=== PATIENT | female | born 1960 | race Caucasian/White ===

== ENCOUNTER 2019-03-26 17:11 | Emergency (ER) | payer MEDICARE, OTHER ==
[~2019-03-26] VITALS: Ht 167.6 cm; Wt 66.7 kg
--- NOTE | 2019-03-26 17:17 | NUR ---
nazanin, from snf, c/o weakness, failure to thrive x 2 days, pt to bed 12, -sob, nad noted, vss, pending md muse
[2019-03-26] MEDS ORDERED: RIVA1.5C7 PO (17:35)
[2019-03-26] MEDS ORDERED: ACET-868 PO (17:35)
[2019-03-26] MEDS ORDERED: AMLO5TAB4 PO (17:35)
[2019-03-26] MEDS ORDERED: ESCI10TA PO (17:35)
[2019-03-26] MEDS ORDERED: DOCU-141 PO (17:35)
[2019-03-26] MEDS ORDERED: TRAZ-182 PO (17:35)
[2019-03-26] MEDS ORDERED: BISA10SU11 RC (17:35)
[2019-03-26] MEDS ORDERED: DIVA125C2 PO (17:35)
[2019-03-26] MEDS ORDERED: QUET25TA PO (17:35)
[2019-03-26] MEDS ORDERED: DONE5TAB34 PO (17:35)
[2019-03-26] MEDS ORDERED: NA P133E RC (17:35)
[2019-03-26] MEDS ORDERED: LISI1TAB29 PO (17:35)
[2019-03-26] MEDS ORDERED: HALO1TAB5 PO (17:35)
[2019-03-26] MEDS ORDERED: MAGN400O6 PO (17:35)
[2019-03-26 17:46] LABS: BASOPHILS % (AUTO) 0.6 % (0.0-2.0); EOSINOPHILS % (AUTO) 1.6 % (0.0-6.0); HEMATOCRIT 34 % (33-45); HEMOGLOBIN 11.2 g/dL (11.5-14.8); LYMPHOCYTES # (AUTO) 2.3 /CMM (0.8-4.8); LYMPHOCYTES % (AUTO) 40.4 % (20.0-44.0); MEAN CORPUSCULAR HGB CONC 34 g/dl (31.0-36.0); MEAN CORPUSCULAR VOLUME 92 fL (82-100); MONOCYTES # (AUTO) 0.5 /CMM (0.1-1.30); MONOCYTES % (AUTO) 8.7 % (2.0-12.0); NEUTROPHILS # (AUTO) 2.8 /CMM (1.8-8.9); NEUTROPHILS % (AUTO) 48.7 % (43.0-81.0); PLATELET COUNT (AUTO) 277 /CMM (150-450); RED BLOOD CELL COUNT(AUTO) 3.64 MIL/uL (4.0-5.2); WHITE BLOOD COUNT (AUTO) 5.7 K/uL (4.3-11.0)
[2019-03-26 17:54] LABS: CALCIUM, SERUM 9.2 mg/dL (8.5-10.1); CREATININE 0.7 mg/dL (0.6-1.3); POTASSIUM 3.3 mmol/L (3.5-5.1)
--- NOTE | 2019-03-26 18:24 | NUR ---
[facility], AWAITING CALL BACK FROM
[2019-03-26] MEDS ORDERED: POTASSIUM CHLORIDE 20 MEQ TAB.PRT.SR PO ONE ×2 (18:30→18:32)
[2019-03-26 18:53] LABS: APPEARANCE,URINE Clear (CLEAR); BILIRUBIN,URINE Negative (NEGATIVE); BLOOD, URINE Moderate Ery/uL (NEGATIVE); COLOR,URINE Yellow (YELLOW); KETONES,URINE Negative (NEGATIVE); LEUKOCYTE ESTERASE ,URINE Negative (NEGATIVE); NITRITE, URINE Negative (NEGATIVE); PH,URINE 5.5 (5.0-8.0); PROTEIN,URINE Negative (NEGATIVE); UGLUCOSE Negative (NEGATIVE); UROBILINOGEN,URINE 0.2 EU/dL (0.2)
[2019-03-26 19:04] LABS: BACTERIA,URINE Few /HPF (None Seen); SQUAMOUS EPITHELIAL CELL,UR Few /HPF (None Seen)
[2019-03-26 19:05] LABS: WBC,URINE 0-2 /HPF (0-3)
[2019-03-26 20:00] VITALS: BP 154/75
--- NOTE | 2019-03-26 20:06 | NUR ---
TRANSFER INFO: PAZ GRIJALVA RN FOR REPORT [phone], ACCEPTED BY DR HENRY. [facility] BLS AMBULNACE ETA 2100
--- NOTE | 2019-03-26 20:37 | NUR ---
report given to comfort le for reji pt will be tranposrted to juan
--- NOTE | 2019-03-26 21:30 | NUR ---
Isabel salas in EDM - 03/26/19 at 2252 by OMAR nazanin, from snf, c/o weakness, failure to thrive x 2 days, pt to bed 12, -sob, nad noted, vss, pending md muse
--- NOTE | 2019-03-26 22:52 | NUR ---
pt left in stable condition via private ambulance, pt vss, nad noted, -sob report given to ambulance staff
== END 2019-03-26 21:30 | disposition short-term general hospital (02) ==
LOC: ER 17:14
DX: R62.7 Adult failure to thrive (principal); E87.6 Hypokalemia; F29 Unspecified psychosis not due to a substance or known physiological condition; F32.9 Major depressive disorder, single episode, unspecified; F20.9 Schizophrenia, unspecified; F03.90 Unspecified dementia, unspecified severity, without behavioral disturbance, psychotic disturbance, mood disturbance, and anxiety; I10 Essential (primary) hypertension; E11.9 Type 2 diabetes mellitus without complications; Z79.899 Other long term (current) drug therapy; Z68.23 Body mass index [BMI] 23.0-23.9, adult
CPT/HCPCS: 36415; 80048-TC; 81000-TC; 84484-TC; 85025-TC

== ENCOUNTER 2020-07-23 12:56 | Inpatient (IN) | payer MEDICARE, OTHER ==
[~2020-07-23] VITALS: Ht 160 cm; Wt 53.1 kg
[~2020-07-23 12:56] MED LIST: ACET-868 PO; AMLO5TAB4 PO; BISA10SU11 RC; DIVA125C2 PO; DOCU-141 PO; DONE5TAB34 PO; ESCI10TA PO; HALO1TAB5 PO; LISI1TAB29 PO; MAGN400O6 PO; NA P133E RC; QUET25TA PO; RIVA1.5C13 PO; TRAZ-182 PO
--- NOTE | 2020-07-23 12:56 | NUR ---
PT BIBPA FROM [place] SENT BY PMD FOR INCREASING AGITATION. PT IS AAOX1, NOT IN RESPIRATORY DISTRESS, V/S STABLE, KEPT RESTED AND COMFORTABLE. WILL CONTINUE TO MONITOR.
--- NOTE | 2020-07-23 13:10 | NUR ---
PT SEEN AND EXAMINED BY .
[2020-07-23] MEDS ORDERED: HALOPERIDOL LACTATE INJ 5 MG/ML VIAL ONE (13:13)
[2020-07-23] MEDS ORDERED: ONDANSETRON HCL/PF 4 MG/2 ML VIAL ONE (13:13)
--- NOTE | 2020-07-23 13:20 | NUR ---
IV LINE ESTABLISHED BLOOD DRAWN AND SENT TO LAB.
[2020-07-23] MEDS ORDERED: HALOPERIDOL LACTATE INJ 5 MG/ML VIAL IM ONE (13:30)
[2020-07-23] MEDS ORDERED: ONDANSETRON HCL/PF 4 MG/2 ML VIAL IVP ONE (13:30)
[2020-07-23] MEDS ORDERED: IV NS 0.9% 1,000 ML BAG IV ONE (13:30)
[2020-07-23 13:40] LABS: BASOPHILS # (AUTO) 0.1 /CMM (0.0-0.2); BASOPHILS % (AUTO) 1.1 % (0.0-2.0); EOSINOPHILS % (AUTO) 1.6 % (0.0-6.0); HEMATOCRIT 39 % (33-45); HEMOGLOBIN 12.9 g/dL (11.5-14.8); LYMPHOCYTES # (AUTO) 2.6 /CMM (0.8-4.8); LYMPHOCYTES % (AUTO) 42.8 % (20.0-44.0); MEAN CORPUSCULAR HGB CONC 34 g/dl (31.0-36.0); MEAN CORPUSCULAR VOLUME 97 fL (82-100); MONOCYTES # (AUTO) 0.5 /CMM (0.1-1.30); MONOCYTES % (AUTO) 8.3 % (2.0-12.0); NEUTROPHILS # (AUTO) 2.8 /CMM (1.8-8.9); NEUTROPHILS % (AUTO) 46.2 % (43.0-81.0); PLATELET COUNT (AUTO) 189 /CMM (150-450); RED BLOOD CELL COUNT(AUTO) 3.97 MIL/uL (4.0-5.2); WHITE BLOOD COUNT (AUTO) 6.1 K/uL (4.3-11.0)
[2020-07-23 13:51] LABS: ALBUMIN 3.8 g/dL (3.4-5.0); BILIRUBIN,DIRECT 0.1 mg/dL (0.0-0.2); BILIRUBIN,TOTAL 0.4 mg/dL (0.2-1.0); CALCIUM, SERUM 9.1 mg/dL (8.5-10.1); CREATININE 0.7 mg/dL (0.6-1.3); POTASSIUM 3.6 mmol/L (3.5-5.1); TOTAL PROTEIN, SERUM 7.8 g/dL (6.4-8.2)
--- NOTE | 2020-07-23 14:10 | NUR ---
CALLED [facility] TO CHECK INSURANCE FOR GER[facility]SY[facility] ADMISSION
[2020-07-23] MEDS ORDERED: AMIN30LI27 PO (14:14)
[2020-07-23] MEDS ORDERED: LATA2.5D15 EACHEYE (14:14)
[2020-07-23] MEDS ORDERED: CLON0.1T PO (14:14)
[2020-07-23] MEDS ORDERED: CRAN425C6 PO (14:14)
--- NOTE | 2020-07-23 14:19 | NUR ---
URINE SPECIMEN COLLECTED AND SENT TO LAB.
[2020-07-23 14:43] LABS: BILIRUBIN,URINE Negative (NEGATIVE); COLOR,URINE LIGHT YELLOW (YELLOW); LEUKOCYTE ESTERASE ,URINE Negative (NEGATIVE); NITRITE, URINE Negative (NEGATIVE); PROTEIN,URINE Negative (NEGATIVE); UGLUCOSE Negative (NEGATIVE); UROBILINOGEN,URINE 0.2 EU/dL (0.2)
[2020-07-23 14:51] LABS: BACTERIA,URINE None seen /HPF (None Seen); SQUAMOUS EPITHELIAL CELL,UR Few /HPF (None Seen); WBC,URINE 0-2 /HPF (0-3)
--- NOTE | 2020-07-23 15:25 | NUR ---
COVID SPECIMEN OBTAINED AND SENT TO LAB.
--- NOTE | 2020-07-23 15:39 | NUR ---
ART PROVINCE ARCHIVIST AT BEDSIDE FOR EVAL.
[2020-07-23] MEDS ORDERED: BISACODYL SUPP (10 MG) 10 MG/SUPP.RECT SUPP.RECT RC PRN (16:00)
[2020-07-23] MEDS ORDERED: MAGNESIUM HYDROXIDE 30 ML UDC PO PRN ×2 (16:00→18:30)
[2020-07-23] MEDS ORDERED: ACETAMINOPHEN 325 MG TABLET PO PRN ×2 (16:00→18:30)
[2020-07-23] MEDS ORDERED: DEXTROSE 50%-WATER 50 ML DISP.SYRIN IV PRN (16:30)
[2020-07-23] MEDS ORDERED: INSULIN REGULAR, HUMAN 100 UNIT/ML 3 ML VIAL SQ PRN (16:30)
--- NOTE | 2020-07-23 16:36 | NUR ---
REPORT GIVEN TO ERMIAS SAGASTUME FOR PERRY.
--- NOTE | 2020-07-23 16:45 | NUR ---
ACADEMIC SERVICES COORDINATOR NOTE: 60 YEAR OLD FEMALE ADMITTED FROM [facility] ON A 5150 FOR GD. PER HOLD, PT HAD INCREASED CONFUSION AND AGITATION. UNABLE TO CARE FOR SELF. PT HAS A HISTORY OF SCHIZOPHRENIA, DEPRESSION, HTN, DM2 AND DYSPHAGIA. PT IS ON A [facility] LYNDSAY DIET WITH NECTAR THICK FLUIDS. 1 LITER IV FLUIDS ADMINISTERED IN ER.UPON FACE TO FACE EVALUATION PT IS MUTE. NOT VERBALLY RESPONSIVE. SOME MINOR INAUDIBLE NOISES. PT UNABLE TO FOLLOW DIRECTIONS. A+OX1. EXTREMITIES ARE CONTRACTED. SKIN CLEAR. UNABLE TO SIGN ADMISSION PAPERWORK. DR. DUFFY AND LENCHO AWARE OF ADMISSION. DAUGHTER IN LAW, NEXT OF KIN, NOTIFIED OF ADMISSION.
[2020-07-23] MEDS: CLONIDINE HCL 0.1 MG TABLET PO SCH (17:00)
[2020-07-23] MEDS ORDERED: DIVALPROEX SODIUM 125 MG CAP.SPRINK PO SCH (17:00)
[2020-07-23] MEDS: BLOOD SUGAR DIAGNOSTIC 1 EACH STRIP IN SCH ×2 (17:28→21:50)
[2020-07-23] MEDS: PROSTAT (PYXIS) 30 ML UDC PO SCH (17:38)
[2020-07-23] MEDS: DONEPEZIL 5 MG TABLET PO SCH (17:38)
[2020-07-23] MEDS ORDERED: Medication Not On Formulary EA (Cranberry Extract (Cranberry) 425 MG) PO SCH (18:00)
[2020-07-23 18:16] VITALS: BP 161/70
[2020-07-23] MEDS ORDERED: LORAZEPAM 0.5 MG TABLET PO PRN (18:30)
[2020-07-23] MEDS ORDERED: BLOOD SUGAR DIAGNOSTIC 1 EACH STRIP IN ONE (18:30)
[2020-07-23] MEDS ORDERED: MAG HYDROX/AL HYDROX/SIMETH 30 ML UDC PO PRN (18:30)
--- NOTE | 2020-07-23 19:30 | NUR ---
RN NOTES PATIENT IN BED, EYES CLOSED. OPENS EYES, UNABLE TO COMMUNICATE VERBALLY. NOT IN ANY APPARENT DISTRESS. BREATHING EVEN AND UNLABORED. WILL MONITOR PATIENT CLOSELY.
[2020-07-23 20:00] VITALS: BP 134/67
[2020-07-23] MEDS: LATANOPROST EYE DROP 0.005% 2.5 ML BOTTLE EACHEYE SCH (22:00)
--- NOTE | 2020-07-23 22:05 | NUR ---
HR 47, LATANOPROST EYE DROPS NOT GIVEN
[2020-07-24] MEDS: BLOOD SUGAR DIAGNOSTIC 1 EACH STRIP IN SCH ×6 (01:06→21:35)
--- NOTE | 2020-07-24 05:15 | NUR ---
BS AT 0445 WAS 61 MG/DL, CHARGE AWARE, RECHECKED IT WAS 69 MG/DL. NOTIFIED STAKES PLAYER HOSPITALIST, ORDERED D10 IN WATER 250 ML BAG TO INFUSE FOR AN HOUR. ORDER READ BACK AND CARRIED OUT. WILL INSERT IV.
[2020-07-24] MEDS ORDERED: DEXTROSE 10% IN WATER 250 ML BAG IV ONE (06:00)
--- NOTE | 2020-07-24 06:20 | NUR ---
NURSING HOT STICK MAN NOTIFIED OF A POSSIBLE ON GOING IV, STATES WE MIGHT NEED A SITTER. NOTIFIED MD, CANCELLED D10 250 ML AND INSTRUCTED TO GIVE D50 INJECTION ORDERED.
--- NOTE | 2020-07-24 06:40 | NUR ---
BS RECHECKED AFTER D50 ADMINISTRATION, BS NOW 175 MG/DL. PATIENT STILL PENDING SWALLOW EVAL.
[2020-07-24 08:00] VITALS: BP 156/95
[2020-07-24 08:10] LABS: ALBUMIN 3.6 g/dL (3.4-5.0); BILIRUBIN,TOTAL 0.6 mg/dL (0.2-1.0); CREATININE 0.8 mg/dL (0.6-1.3); POTASSIUM 3.8 mmol/L (3.5-5.1); TOTAL PROTEIN, SERUM 7.5 g/dL (6.4-8.2)
[2020-07-24 08:12] LABS: CHOLESTEROL 179 mg/dL (<200); HDL CHOLESTEROL 65 mg/dL (40-60); LDL 109 mg/dL (0-99); TRIGLYCERIDES 45 mg/dL (30-150)
[2020-07-24] MEDS: DOCUSATE SODIUM 100 MG CAPSULE PO SCH (08:22)
[2020-07-24] MEDS: AMLODIPINE BESYLATE 5 MG TABLET PO SCH (08:23)
[2020-07-24] MEDS: HYDROCHLOROTHIAZIDE 25 MG TABLET PO SCH (08:23)
[2020-07-24] MEDS: CLONIDINE HCL 0.1 MG TABLET PO SCH ×3 (08:23→17:19)
[2020-07-24] MEDS: LISINOPRIL (20MG) 20 MG TABLET PO SCH (08:24)
--- NOTE | 2020-07-24 08:43 | NUR ---
RN NOTE: ACCUCHECK 159 AFTER MEAL ASSISTED BY SPEECH THERAPY DURING SWALLOW EVALUATION. NO SLIDING SCALE GIVEN AT PRESENT TIME.
[2020-07-24] MEDS ORDERED: Medication Not On Formulary EA (Lisinopril/Hydrochlorothiazide (Lisinopril-Hctz 20-25 Mg PO SCH (09:00)
[2020-07-24] MEDS: DIVALPROEX SODIUM 250 MG TABLET.DR PO SCH ×2 (11:46→21:27)
[2020-07-24] MEDS ORDERED: DEXTROSE 50%-WATER 50 ML DISP.SYRIN IV PRN (12:00)
[2020-07-24] MEDS ORDERED: INSULIN REGULAR, HUMAN 100 UNIT/ML 3 ML VIAL SQ PRN (12:00)
[2020-07-24] MEDS: HALOPERIDOL 1 MG TABLET PO SCH ×2 (12:02→17:18)
--- NOTE | 2020-07-24 16:52 | NUR ---
RN NOTE: LOW BLOOD SUGAR AC ACCUCHECK 58. PT IS ASYMPTOMATIC. PROVIDED JUICE WITH ADDED SUGAR. WILL REPEAT ACCUCHECK WITHIN A HALF HOUR.
[2020-07-24] MEDS: DONEPEZIL 5 MG TABLET PO SCH (17:18)
--- NOTE | 2020-07-24 17:31 | NUR ---
RN NOTE: ACCUCHECK PT ATE 100% DINNER AND JUICE WITH SUGAR. FOLLOW UP ACCUCHECK 95.
[2020-07-24] MEDS: PROSTAT (PYXIS) 30 ML UDC PO SCH (18:04)
--- NOTE | 2020-07-24 19:30 | NUR ---
GPS RN NOTE, RECEIVED PATIENT AWAKE AND IN BED, NO S/S OR COMPLAINTS OF PAIN AT THIS TIME. PATIENT IS DISPLAYING NO S/S OF APPARENT DISTRESS AT THIS TIME. PATIENT BREATHING IS UNLABORED WITH EQUAL RISE AND FALL OF THE CHEST. PATIENT IS ALERT AND ORIENTED X 1 ON ROOM AIR WITH A SPO2 99%. PATIENT IS COMPLIANT WITH MEDICATIONS, CONFUSED, QUIET, AND NEEDS REDIRECTION. PATIENT DENIES SUICIDAL AND HOMICIDAL IDEATIONS AT THIS TIME. PATIENT ASSISTED WITH TURNING AND REPOSITIONING Q2HR AND PRN FOR COMFORT AND CIRCULATION. PATIENT HAS NO NEEDS AT THIS TIME. PATIENT EDUCATED ON THE USE OF THE CALL AGUIRRE. PATIENT BED SIDE RAILS UP X 2 FOR SAFETY. PATIENT BED IS LOCKED, LOW, WITH BED ALARM ON. WILL CONTINUE TO MONITOR THIS PATIENT Q15 MINUTES WITH THE HELP OF STAFF TO MAINTAIN SAFETY.
[2020-07-24 21:01] VITALS: BP 115/73
[2020-07-24] MEDS: LATANOPROST EYE DROP 0.005% 2.5 ML BOTTLE EACHEYE SCH (21:28)
--- NOTE | 2020-07-24 21:35 | NUR ---
GPS RN NOTE, PERFORMED ACCU CHECK ON PATIENT WITH A BLOOD SUGAR RESULT OF 87. NO REGULAR INSULIN GIVEN PER SLIDING SCALE. WILL CONTINUE TO MONITOR THIS PATIENT WITH THE HELP OF STAFF.
[2020-07-25] MEDS: BLOOD SUGAR DIAGNOSTIC 1 EACH STRIP IN SCH ×4 (07:28→22:24)
[2020-07-25 08:00] VITALS: BP 139/78
[2020-07-25] MEDS: HYDROCHLOROTHIAZIDE 25 MG TABLET PO SCH (08:15)
[2020-07-25] MEDS: HALOPERIDOL 1 MG TABLET PO SCH ×3 (08:15→16:39)
[2020-07-25] MEDS: AMLODIPINE BESYLATE 5 MG TABLET PO SCH (08:15)
[2020-07-25] MEDS: LISINOPRIL (20MG) 20 MG TABLET PO SCH (08:15)
[2020-07-25] MEDS: CLONIDINE HCL 0.1 MG TABLET PO SCH ×3 (08:16→16:39)
[2020-07-25] MEDS: DIVALPROEX SODIUM 250 MG TABLET.DR PO SCH ×2 (08:16→21:24)
[2020-07-25] MEDS: DOCUSATE SODIUM 100 MG CAPSULE PO SCH (08:16)
[2020-07-25 16:00] VITALS: BP 96/52
--- NOTE | 2020-07-25 16:39 | NUR ---
RN NOTE: MEDICATIONS HELD BP 96/52, CLONIDINE AND HALDOL HELD
[2020-07-25] MEDS: PROSTAT (PYXIS) 30 ML UDC PO SCH (17:10)
[2020-07-25] MEDS: DONEPEZIL 5 MG TABLET PO SCH (17:10)
[2020-07-25 20:20] VITALS: BP 117/80
[2020-07-25] MEDS: LATANOPROST EYE DROP 0.005% 2.5 ML BOTTLE EACHEYE SCH (22:20)
[2020-07-25] MEDS: TEMAZEPAM 7.5 MG CAPSULE PO PRN (22:25)
--- NOTE | 2020-07-25 22:26 | NUR ---
RN NOTES : INSOMNIA PT.UNABLE TO SLEEP, PRN RESTORIL 7.5 MG PO ADMINISTERED. WILL CONTINUE TO MONITOR.
[2020-07-26 08:00] VITALS: BP 138/88
[2020-07-26] MEDS: BLOOD SUGAR DIAGNOSTIC 1 EACH STRIP IN SCH ×4 (08:46→21:49)
--- NOTE | 2020-07-26 09:42 | NUR ---
RN-NOTES DR. DUFFY T.O ORDER TO CHANGE DEPAKOTE DR 250MG P.O Q12HR TO DEPAKOTE SPRINKLE 250MG P.O Q12 HR. NOTED AND CARRIED OUT.
[2020-07-26] MEDS: DOCUSATE SODIUM 100 MG CAPSULE PO SCH (09:48)
[2020-07-26] MEDS: DIVALPROEX SODIUM 125 MG CAP.SPRINK PO SCH ×2 (09:48→20:43)
[2020-07-26] MEDS: AMLODIPINE BESYLATE 5 MG TABLET PO SCH (09:49)
[2020-07-26] MEDS: HALOPERIDOL 1 MG TABLET PO SCH ×3 (09:50→17:20)
[2020-07-26] MEDS: CLONIDINE HCL 0.1 MG TABLET PO SCH ×3 (09:50→17:20)
[2020-07-26] MEDS: HYDROCHLOROTHIAZIDE 25 MG TABLET PO SCH (09:51)
[2020-07-26] MEDS: LISINOPRIL (20MG) 20 MG TABLET PO SCH (09:51)
[2020-07-26 12:26] VITALS: BP 136/96
--- NOTE | 2020-07-26 15:26 | NUR ---
SNF Contact: SW contacted Genia ([phone]) from [facility] who confirmed that the pt can return there once stable.
--- NOTE | 2020-07-26 15:35 | NUR ---
Family Contact: SW contacted the pts daughter, Zoe ([phone]), for collateral information and discussed the pts treatment plan. Pts daughter stated that she wanted the pt to return to [facility].
[2020-07-26 16:00] VITALS: BP 128/78
--- NOTE | 2020-07-26 16:09 | NUR ---
Initial Discharge Plan: Pt currently resides at [facility] located at [address] [place] [address], [place], [place]; ([phone]). Per pts daughter, Zoe ([phone]), she would like the pt to return. SW will work with the pt, pts daughter, and MD regarding appropriate discharge planning. SW will form a safe and proper discharge.
[2020-07-26] MEDS: DONEPEZIL 5 MG TABLET PO SCH (17:20)
[2020-07-26] MEDS: PROSOURCE / PROSTAT (PYXIS) 30 ML UDC PO SCH (17:49)
--- NOTE | 2020-07-26 18:53 | NUR ---
RN-NOTES AROUND 1724 PATIENT BLOOD SUGAR WAS 44 MG/DL,GAVE ORANGE JUICE AND DID RECHECK AFTER ONE HR WITH BS OF 201 MG/DL. JENNIE PLATA MADE AWARE WITH NNO. PATIENT IS ALERT,NO ACUTE DISTRESS NOTED ,ABLE TO AMBULATE WITH ASSIST.PATIENT IS UP IN THE MARITZA CHAIR IN THE HALLWAY AT THIS TIME AWAKE,ALERT TO NAME ONLY. WILL ENDORSE TO INCOMING NURSE FOR CONTINUITY OF CARE.
[2020-07-26 20:00] VITALS: BP 121/81
[2020-07-26] MEDS: LATANOPROST EYE DROP 0.005% 2.5 ML BOTTLE EACHEYE SCH (21:50)
[2020-07-27] MEDS: BLOOD SUGAR DIAGNOSTIC 1 EACH STRIP IN SCH ×4 (07:37→21:01)
[2020-07-27 08:00] VITALS: BP 128/61
[2020-07-27] MEDS: HYDROCHLOROTHIAZIDE 25 MG TABLET PO SCH (08:08)
[2020-07-27] MEDS: DIVALPROEX SODIUM 125 MG CAP.SPRINK PO SCH ×2 (08:08→21:01)
[2020-07-27] MEDS: CLONIDINE HCL 0.1 MG TABLET PO SCH ×3 (08:09→16:18)
[2020-07-27] MEDS: AMLODIPINE BESYLATE 5 MG TABLET PO SCH (08:09)
[2020-07-27] MEDS: DOCUSATE SODIUM 100 MG CAPSULE PO SCH (08:09)
[2020-07-27] MEDS: HALOPERIDOL 1 MG TABLET PO SCH ×3 (08:09→16:18)
[2020-07-27] MEDS: LISINOPRIL (20MG) 20 MG TABLET PO SCH (08:11)
[2020-07-27 16:00] VITALS: BP 119/75
[2020-07-27] MEDS: DONEPEZIL 5 MG TABLET PO SCH (17:15)
[2020-07-27] MEDS: PROSOURCE / PROSTAT (PYXIS) 30 ML UDC PO SCH (17:15)
[2020-07-27 20:26] VITALS: BP 115/70
[2020-07-27 20:44] LABS: ALBUMIN 3.7 g/dL (3.4-5.0); BILIRUBIN,TOTAL 0.4 mg/dL (0.2-1.0); CALCIUM, SERUM 9.2 mg/dL (8.5-10.1); CREATININE 0.7 mg/dL (0.6-1.3); POTASSIUM 3.1 mmol/L (3.5-5.1); TOTAL PROTEIN, SERUM 7.5 g/dL (6.4-8.2)
[2020-07-27] MEDS: LATANOPROST EYE DROP 0.005% 2.5 ML BOTTLE EACHEYE SCH (21:01)
[2020-07-27] MEDS: TEMAZEPAM 7.5 MG CAPSULE PO PRN (21:01)
[2020-07-28 06:35] LABS: BASOPHILS % (AUTO) 0.7 % (0.0-2.0); EOSINOPHILS % (AUTO) 2.8 % (0.0-6.0); HEMATOCRIT 38 % (33-45); HEMOGLOBIN 12.9 g/dL (11.5-14.8); LYMPHOCYTES # (AUTO) 2.7 /CMM (0.8-4.8); LYMPHOCYTES % (AUTO) 55.8 % (20.0-44.0); MEAN CORPUSCULAR HGB CONC 34 g/dl (31.0-36.0); MEAN CORPUSCULAR VOLUME 95 fL (82-100); MONOCYTES # (AUTO) 0.4 /CMM (0.1-1.30); MONOCYTES % (AUTO) 8.3 % (2.0-12.0); NEUTROPHILS # (AUTO) 1.6 /CMM (1.8-8.9); NEUTROPHILS % (AUTO) 32.4 % (43.0-81.0); PLATELET COUNT (AUTO) 201 /CMM (150-450); RED BLOOD CELL COUNT(AUTO) 3.99 MIL/uL (4.0-5.2); WHITE BLOOD COUNT (AUTO) 4.8 K/uL (4.3-11.0)
[2020-07-28 08:00] VITALS: BP 133/72
--- NOTE | 2020-07-28 08:05 | NUR ---
RN note: Pt received on annel-chair, awake, non verbal. no s/s of distress noted. Continue with aspiration precautions. Safety measures observed. Continue to monitor.
[2020-07-28] MEDS: HYDROCHLOROTHIAZIDE 25 MG TABLET PO SCH (08:48)
[2020-07-28] MEDS: BLOOD SUGAR DIAGNOSTIC 1 EACH STRIP IN SCH ×4 (08:48→22:28)
[2020-07-28] MEDS: CLONIDINE HCL 0.1 MG TABLET PO SCH ×3 (08:49→17:14)
[2020-07-28] MEDS: DOCUSATE SODIUM 100 MG CAPSULE PO SCH (08:49)
[2020-07-28] MEDS: HALOPERIDOL 1 MG TABLET PO SCH ×3 (08:49→17:14)
[2020-07-28] MEDS: DIVALPROEX SODIUM 125 MG CAP.SPRINK PO SCH ×2 (08:49→21:18)
[2020-07-28] MEDS: AMLODIPINE BESYLATE 5 MG TABLET PO SCH (08:50)
[2020-07-28] MEDS: LISINOPRIL (20MG) 20 MG TABLET PO SCH (08:50)
[2020-07-28 16:00] VITALS: BP 105/63
[2020-07-28 16:28] VITALS: BP 105/63
[2020-07-28] MEDS: DONEPEZIL 5 MG TABLET PO SCH (17:13)
[2020-07-28] MEDS: PROSOURCE / PROSTAT (PYXIS) 30 ML UDC PO SCH (17:24)
[2020-07-28 19:59] VITALS: BP 112/66
[2020-07-28] MEDS: LATANOPROST EYE DROP 0.005% 2.5 ML BOTTLE EACHEYE SCH (22:32)
--- NOTE | 2020-07-28 22:32 | NUR ---
GPS RN NOTES PATIENT BS: 73. NO INSULIN GIVEN.
[2020-07-28] MEDS: TEMAZEPAM 7.5 MG CAPSULE PO PRN (23:21)
--- NOTE | 2020-07-28 23:27 | NUR ---
GPS RN NOTES PATIENT GIVEN RESTORIL AT THIS TIME, PER CHARGE NURSE CLINICAL ASSESSMENT.
[2020-07-29 00:12] VITALS: BP 112/66
--- NOTE | 2020-07-29 06:39 | NUR ---
GPS RN CLOSING PATIENT DID NOT SLEEP AT ALL LAST NIGHT. REMAINS NON-VERBAL. TRIED TO PUT TO BED BUT SHE KEEPS CLIMBING UP OFF BED. HENCE PATIENT WAS PUT IN RAJWINDER CHAIR AGAIN, TREASURY ANALYST's PRESENT IN THE ACTIVITY ROOM WITH PATIENT. NO S/S OF DISTRESS. NOT EXHIBITING PAIN PER FLACC PAIN SCALE. ALL SCHED MEDS ADMINISTERED. ALL NEEDS ATTENDED. NO SIGNIFICANT CHANGE SINCE LAST SHIFT.WILL ENDORSE CARE TO MORNING SHIFT NURSE.
[2020-07-29] MEDS: BLOOD SUGAR DIAGNOSTIC 1 EACH STRIP IN SCH ×4 (07:30→21:41)
[2020-07-29 08:00] VITALS: BP 156/80
[2020-07-29] MEDS: CLONIDINE HCL 0.1 MG TABLET PO SCH ×3 (08:38→17:00)
[2020-07-29] MEDS: DIVALPROEX SODIUM 125 MG CAP.SPRINK PO SCH ×2 (08:38→21:19)
[2020-07-29] MEDS: HALOPERIDOL 1 MG TABLET PO SCH ×3 (08:39→17:00)
[2020-07-29] MEDS: HYDROCHLOROTHIAZIDE 25 MG TABLET PO SCH (08:39)
[2020-07-29] MEDS: AMLODIPINE BESYLATE 5 MG TABLET PO SCH (08:39)
[2020-07-29] MEDS: DOCUSATE SODIUM 100 MG CAPSULE PO SCH (08:39)
[2020-07-29] MEDS: LISINOPRIL (20MG) 20 MG TABLET PO SCH (08:40)
[2020-07-29 16:13] VITALS: BP 133/82
[2020-07-29] MEDS: PROSOURCE / PROSTAT (PYXIS) 30 ML UDC PO SCH (18:00)
[2020-07-29] MEDS: DONEPEZIL 5 MG TABLET PO SCH (18:32)
[2020-07-29 20:02] VITALS: BP 125/90
[2020-07-29 20:40] VITALS: BP 125/90
[2020-07-29] MEDS: LATANOPROST EYE DROP 0.005% 2.5 ML BOTTLE EACHEYE SCH (21:38)
[2020-07-29] MEDS: TEMAZEPAM 7.5 MG CAPSULE PO PRN (22:26)
[2020-07-30 08:00] VITALS: BP 144/93
[2020-07-30] MEDS: DIVALPROEX SODIUM 125 MG CAP.SPRINK PO SCH ×3 (08:18→16:05)
[2020-07-30] MEDS: HALOPERIDOL 1 MG TABLET PO SCH ×5 (08:18→20:25)
[2020-07-30] MEDS: LISINOPRIL (20MG) 20 MG TABLET PO SCH (08:19)
[2020-07-30] MEDS: DOCUSATE SODIUM 100 MG CAPSULE PO SCH (08:19)
[2020-07-30] MEDS: CLONIDINE HCL 0.1 MG TABLET PO SCH ×3 (08:19→16:05)
[2020-07-30] MEDS: HYDROCHLOROTHIAZIDE 25 MG TABLET PO SCH (08:19)
[2020-07-30] MEDS: AMLODIPINE BESYLATE 5 MG TABLET PO SCH (08:20)
[2020-07-30] MEDS: BLOOD SUGAR DIAGNOSTIC 1 EACH STRIP IN SCH ×4 (08:30→21:30)
--- NOTE | 2020-07-30 12:23 | NUR ---
GPS RN NOTE HALOPERIDOL JUST GIVEN AT 1203. THERE ARE SOME ORDER FOR TIME ADJUSTMENT FROM DR DUFFY. HELD 1300 HALDOL.
[2020-07-30 16:00] VITALS: BP 119/68
[2020-07-30] MEDS: DONEPEZIL 5 MG TABLET PO SCH (17:03)
[2020-07-30] MEDS: PROSOURCE / PROSTAT (PYXIS) 30 ML UDC PO SCH (17:03)
[2020-07-30] MEDS: LATANOPROST EYE DROP 0.005% 2.5 ML BOTTLE EACHEYE SCH (21:31)
[2020-07-31] MEDS: BLOOD SUGAR DIAGNOSTIC 1 EACH STRIP IN SCH ×4 (07:31→21:48)
[2020-07-31 08:00] VITALS: BP_SYST 110; BP_SYST 123; BP_DIAS 72; BP_DIAS 92
[2020-07-31] MEDS: CLONIDINE HCL 0.1 MG TABLET PO SCH ×3 (08:01→17:17)
[2020-07-31] MEDS: AMLODIPINE BESYLATE 5 MG TABLET PO SCH (08:05)
[2020-07-31] MEDS: LISINOPRIL (20MG) 20 MG TABLET PO SCH (08:05)
[2020-07-31] MEDS: HYDROCHLOROTHIAZIDE 25 MG TABLET PO SCH (08:05)
[2020-07-31] MEDS: DOCUSATE SODIUM 100 MG CAPSULE PO SCH (08:06)
[2020-07-31] MEDS: DIVALPROEX SODIUM 125 MG CAP.SPRINK PO SCH ×3 (08:06→17:18)
[2020-07-31] MEDS: HALOPERIDOL 1 MG TABLET PO SCH ×4 (08:06→21:47)
--- NOTE | 2020-07-31 08:07 | NUR ---
gps shipyard painting supervisor: notes held b/p meds at this time due to b/p wnl. will continue to monitor.
--- NOTE | 2020-07-31 11:28 | NUR ---
Probable Cause Hearing: Pts 5250 hold was upheld for grave disability.
--- NOTE | 2020-07-31 11:45 | NUR ---
gps advanced practice registered nurse: notes bs check=60. lunch served and assisted. given orange juice with her meals.
--- NOTE | 2020-07-31 12:11 | NUR ---
gps room cleaner: notes re check bs after lunch=86. left message to melinda uribe) via [employer] exchange.
--- NOTE | 2020-07-31 12:18 | NUR ---
gps childcare center director: notes melinda cerda (director of student affairs) notified and made aware re: bs running from 60-86 today with no new order. continue to monitor per director of student affairs.
[2020-07-31 16:00] VITALS: BP 134/82
[2020-07-31] MEDS: DONEPEZIL 5 MG TABLET PO SCH (17:18)
[2020-07-31] MEDS: PROSOURCE / PROSTAT (PYXIS) 30 ML UDC PO SCH (17:22)
[2020-07-31] MEDS: LATANOPROST EYE DROP 0.005% 2.5 ML BOTTLE EACHEYE SCH (21:47)
[2020-07-31] MEDS: TEMAZEPAM 7.5 MG CAPSULE PO PRN (21:48)
[2020-08-01] MEDS: BLOOD SUGAR DIAGNOSTIC 1 EACH STRIP IN SCH ×4 (07:57→21:13)
[2020-08-01 08:00] VITALS: BP 147/96
[2020-08-01] MEDS: DIVALPROEX SODIUM 125 MG CAP.SPRINK PO SCH ×3 (08:34→17:27)
[2020-08-01] MEDS: DOCUSATE SODIUM 100 MG CAPSULE PO SCH (08:35)
[2020-08-01] MEDS: HALOPERIDOL 1 MG TABLET PO SCH ×4 (08:35→21:13)
[2020-08-01] MEDS: AMLODIPINE BESYLATE 5 MG TABLET PO SCH (08:35)
[2020-08-01] MEDS: LISINOPRIL (20MG) 20 MG TABLET PO SCH (08:35)
[2020-08-01] MEDS: HYDROCHLOROTHIAZIDE 25 MG TABLET PO SCH (08:35)
[2020-08-01] MEDS: CLONIDINE HCL 0.1 MG TABLET PO SCH ×3 (08:36→17:28)
[2020-08-01 16:00] VITALS: BP 147/83
[2020-08-01] MEDS: DONEPEZIL 5 MG TABLET PO SCH (17:27)
[2020-08-01] MEDS: PROSOURCE / PROSTAT (PYXIS) 30 ML UDC PO SCH (17:29)
[2020-08-01 20:00] VITALS: BP 136/76
[2020-08-01] MEDS: TEMAZEPAM 7.5 MG CAPSULE PO PRN (21:13)
[2020-08-01] MEDS: LATANOPROST EYE DROP 0.005% 2.5 ML BOTTLE EACHEYE SCH (21:13)
[2020-08-02 08:00] VITALS: BP 126/75
[2020-08-02] MEDS: BLOOD SUGAR DIAGNOSTIC 1 EACH STRIP IN SCH (08:09)
[2020-08-02] MEDS: DIVALPROEX SODIUM 125 MG CAP.SPRINK PO SCH ×3 (08:50→16:58)
[2020-08-02] MEDS: AMLODIPINE BESYLATE 5 MG TABLET PO SCH (08:50)
[2020-08-02] MEDS: HALOPERIDOL 1 MG TABLET PO SCH ×4 (08:51→21:22)
[2020-08-02] MEDS: DOCUSATE SODIUM 100 MG CAPSULE PO SCH (08:51)
[2020-08-02] MEDS: HYDROCHLOROTHIAZIDE 25 MG TABLET PO SCH (08:51)
[2020-08-02] MEDS: CLONIDINE HCL 0.1 MG TABLET PO SCH ×3 (08:51→16:58)
[2020-08-02] MEDS: LISINOPRIL (20MG) 20 MG TABLET PO SCH (08:52)
[2020-08-02] MEDS: ENOXAPARIN SODIUM 40 MG/0.4 ML DISP.SYRIN SQ SCH (11:50)
--- NOTE | 2020-08-02 14:39 | NUR ---
Family Contact: SW contacted the pts daughter, Zoe ([phone]), and left a voicemail message stating that the pt is going to be discharged to [place] the following day.
[2020-08-02 16:00] VITALS: BP 138/96
[2020-08-02] MEDS: PROSOURCE / PROSTAT (PYXIS) 30 ML UDC PO SCH (17:28)
[2020-08-02] MEDS: DONEPEZIL 5 MG TABLET PO SCH (17:28)
[2020-08-02 20:41] VITALS: BP 103/57
[2020-08-02] MEDS: LATANOPROST EYE DROP 0.005% 2.5 ML BOTTLE EACHEYE SCH (21:21)
[2020-08-03 06:46] LABS: BASOPHILS # (AUTO) 0.1 /CMM (0.0-0.2); BASOPHILS % (AUTO) 1.1 % (0.0-2.0); EOSINOPHILS % (AUTO) 4.2 % (0.0-6.0); HEMATOCRIT 38 % (33-45); HEMOGLOBIN 13.1 g/dL (11.5-14.8); LYMPHOCYTES # (AUTO) 3.3 /CMM (0.8-4.8); MEAN CORPUSCULAR HGB CONC 34 g/dl (31.0-36.0); MEAN CORPUSCULAR VOLUME 95 fL (82-100); MONOCYTES # (AUTO) 0.4 /CMM (0.1-1.30); MONOCYTES % (AUTO) 7.5 % (2.0-12.0); NEUTROPHILS # (AUTO) 1.2 /CMM (1.8-8.9); NEUTROPHILS % (AUTO) 23.2 % (43.0-81.0); PLATELET COUNT (AUTO) 243 /CMM (150-450); WHITE BLOOD COUNT (AUTO) 5.1 K/uL (4.3-11.0)
[2020-08-03 07:07] LABS: ALBUMIN 3.6 g/dL (3.4-5.0); BILIRUBIN,TOTAL 0.5 mg/dL (0.2-1.0); CALCIUM, SERUM 9.4 mg/dL (8.5-10.1); CREATININE 0.8 mg/dL (0.6-1.3); POTASSIUM 4.1 mmol/L (3.5-5.1); TOTAL PROTEIN, SERUM 7.6 g/dL (6.4-8.2)
[2020-08-03 08:00] VITALS: BP 128/60
[2020-08-03] MEDS: DIVALPROEX SODIUM 125 MG CAP.SPRINK PO SCH ×2 (08:49→12:34)
[2020-08-03] MEDS: DOCUSATE SODIUM 100 MG CAPSULE PO SCH (08:49)
[2020-08-03] MEDS: CLONIDINE HCL 0.1 MG TABLET PO SCH ×2 (08:49→12:35)
[2020-08-03] MEDS: HYDROCHLOROTHIAZIDE 25 MG TABLET PO SCH (08:50)
[2020-08-03] MEDS: HALOPERIDOL 1 MG TABLET PO SCH ×2 (08:50→12:35)
[2020-08-03] MEDS: LISINOPRIL (20MG) 20 MG TABLET PO SCH (08:50)
[2020-08-03] MEDS: AMLODIPINE BESYLATE 5 MG TABLET PO SCH (08:50)
[2020-08-03] MEDS: ENOXAPARIN SODIUM 40 MG/0.4 ML DISP.SYRIN SQ SCH (08:51)
--- NOTE | 2020-08-03 10:01 | NUR ---
Dr. Sanchez gave an order to D/C hold and D/C to [facility] and to follow with psych and medical doctors and to continue same including prn.
--- NOTE | 2020-08-03 10:30 | NUR ---
Efrain Michaud LOADER TECHNICIAN in the unit and made aware of the discharge and reconciled meds.
[2020-08-03 12:35] VITALS: BP 118/54
--- NOTE | 2020-08-03 15:20 | NUR ---
WINDOW SHADE ESTIMATOR NOTES Patient discharged to [facility] ([facility]) with stable vital signs, report given to Patria RN , no acute distress noted, breathing unlabored, no facial grimacing noted. Patient denies both suicidal and homicidal ideation as well as auditory and visual hallucinations. All belongings taken with the patient. Skin is intact. Discharge instructions given to Patria RN, discharge papers given to EMT personnel to be given to SNF RN, Picked up via ambulance in a gurney accompanied by 2 EMT personnel in stable condition.
--- NOTE | 2020-08-03 15:33 | NUR ---
Discharge Note: Pt will be discharged to [facility] (SNF) located at [address], [place] [address]; ([phone]). Pt will be transported via [facility] at 2PM. Pts daughter, Zoe ([phone]), was informed via voicemail and made aware of this discharge. Upon discharge, the pt appeared to be in a dysphoric mood and presented with a congruent affect. The pt denies both suicidal and homicidal ideation as well as auditory and visual hallucinations. Pt will continue to be under the care of her psychiatrist, Dr. Nicole Sanchez, located at [address] [place] [address] [address], [place] [address]; and piece worker, Dr. Reza, located at [address], [place] [address], . Pt signed the Choice of Vendor form and the multidisciplinary exit care form was done, printed, signed, and given to the patient.
== END 2020-08-03 15:20 | DRG 885 ==
LOC: ER 12:58 → GPS 15:08
PROVIDERS: ADMIT Psychiatry & Neurology Psychosomatic Medicine; ATTEND Nurse Practitioner Family
DX: F20.9 Schizophrenia, unspecified (principal); F32.9 Major depressive disorder, single episode, unspecified; I71.2 Thoracic aortic aneurysm, without rupture; F03.90 Unspecified dementia, unspecified severity, without behavioral disturbance, psychotic disturbance, mood disturbance, and anxiety; E11.9 Type 2 diabetes mellitus without complications; I10 Essential (primary) hypertension; R13.10 Dysphagia, unspecified; F29 Unspecified psychosis not due to a substance or known physiological condition
CPT/HCPCS: 36415; 71045-TC; 80048-TC; 80053-TC; 80061-TC; 80076-TC; 80164-TC; 81001; 82962-TC; 83690-TC; 85025-TC; 87081-TC; 92526; 92611-TC; J1630; J1650; J1815; J2405; J7030

== ENCOUNTER 2022-02-21 10:24 | Emergency (ER) | payer MEDICARE, OTHER ==
[~2022-02-21] VITALS: Ht 167.6 cm; Wt 59.9 kg
[~2022-02-21 10:24] MED LIST changes: +AMIN30LI27 PO; +CLON0.1T PO; +CRAN425C6 PO; +LATA2.5D15 EACHEYE; -TRAZ-182 PO
--- NOTE | 2022-02-21 11:00 | NUR ---
NICOLE RODGERS FROM CARE FACILITY, SEIZURE EPISODE THIS MORNING X 2. PLACED ON BED, RESPONDING TO VERBAL STIMULI BY MOVING HER HEAD, BREATHING EVEN AND UNLABORED SATURATING AT 98%RA, KNOWN HX OF GEN. WEAKNESS, DEMENTIA, ABNORMAL GAIT AND MOBILITY.
--- NOTE | 2022-02-21 11:02 | NUR ---
TO ER 7 ,SEIZURE PRECAUTION,MONITOR
--- NOTE | 2022-02-21 11:25 | NUR ---
BLOOD DRAWN AND SENT TO LAB
[2022-02-21 11:30] LABS: BASOPHILS % (AUTO) 0.4 % (0.0-2.0); HEMATOCRIT 37 % (33-45); HEMOGLOBIN 12.1 g/dL (11.5-14.8); LYMPHOCYTES # (AUTO) 1.5 K/uL (0.8-4.8); MEAN CORPUSCULAR HGB CONC 33 g/dl (31.0-36.0); MEAN CORPUSCULAR VOLUME 95 fL (82-100); MONOCYTES # (AUTO) 0.6 K/uL (0.1-1.30); MONOCYTES % (AUTO) 5.6 % (2.0-12.0); PLATELET COUNT (AUTO) 192 K/uL (150-450); RED BLOOD CELL COUNT(AUTO) 3.83 MIL/uL (4.0-5.2); WHITE BLOOD COUNT (AUTO) 10.2 K/uL (4.3-11.0)
--- NOTE | 2022-02-21 11:35 | NUR ---
PATIENT TAKEN TO CT VIA LAYA
[2022-02-21] MEDS ORDERED: LEVETIRACETAM (500MG) 500 MG in IV NS 0.9% 100 ML IV ONE (12:00)
[2022-02-21 12:03] LABS: ALANINE AMINOTRANSFERASE 25 U/L (12-78); ALBUMIN 3.4 g/dL (3.4-5.0); ALCOHOL, BLOOD < 3 mg/dL (0-0); ALKALINE PHOSPHATASE 74 U/L (46-116); ASPARTATE AMINOTRANSFERASE 20 U/L (15-37); BILIRUBIN,DIRECT 0.1 mg/dL (0.0-0.2); BILIRUBIN,TOTAL 0.4 mg/dL (0.2-1.0); CALCIUM, SERUM 8.5 mg/dL (8.5-10.1); CARBON DIOXIDE 31 mmol/L (21-32); CHLORIDE 103 mmol/L (98-107); CREATININE 0.8 mg/dL (0.6-1.3); GLUCOSE 81 mg/dL (74-106); POTASSIUM 3.2 mmol/L (3.5-5.1); SODIUM SERUM 138 mmol/L (136-145); TOTAL PROTEIN, SERUM 7.1 g/dL (6.4-8.2); UREA NITROGEN, BLOOD 14 mg/dL (7-18)
--- NOTE | 2022-02-21 12:14 | NUR ---
CALLED PHARMACY FOR KEPPRA MEDICATION
--- NOTE | 2022-02-21 13:37 | NUR ---
[facility], ETA 90 MINUTES
--- NOTE | 2022-02-21 13:40 | NUR ---
NO ACTIVE SZ PT AWAKE AND FALLOW COMMAND
--- NOTE | 2022-02-21 14:41 | NUR ---
EMT AT BEDSIDE TO PICKUP PT. BEDSIDE ENDORSEMENT GIVEN.
--- NOTE | 2022-02-21 14:43 | NUR ---
REPORT GIVEN TO [facility] EMT FOR TX AND PERRY
--- NOTE | 2022-02-21 14:50 | NUR ---
TRNSFER BACK TO SNF
[2022-02-21 15:03] VITALS: BP 124/50
== END 2022-02-21 15:04 ==
LOC: ER 10:30
DX: G40.909 Epilepsy, unspecified, not intractable, without status epilepticus (principal); I10 Essential (primary) hypertension; Z79.899 Other long term (current) drug therapy
CPT/HCPCS: 99285; 96365; 93005; 71045; 70450; 85025; 80048; 80076; 80164; 85730; 82962; 80320; 80307; J7030; J1953; 36415; G0480

== ENCOUNTER 2024-05-26 21:25 | Inpatient (IN) | payer MEDICARE, OTHER ==
[~2024-05-26] VITALS: Ht 167.6 cm; Wt 64.4 kg
[2024-05-26 22:32] LABS: BASOPHILS % (AUTO) 0.5 % (0.0-2.0); EOSINOPHILS # (AUTO) 0.3 K/uL (0.0-0.7); EOSINOPHILS % (AUTO) 3.5 % (0.0-6.0); HEMATOCRIT 35 % (33-45); LYMPHOCYTES % (AUTO) 53.2 % (20.0-44.0); MEAN CORPUSCULAR HEMOGLOBIN 31 PG (26.0-33.0); MEAN CORPUSCULAR HGB CONC 34 g/dl (31.0-36.0); MEAN CORPUSCULAR VOLUME 92 fL (82-100); MONOCYTES # (AUTO) 0.7 K/uL (0.1-1.30); MONOCYTES % (AUTO) 9.1 % (2.0-12.0); NEUTROPHILS # (AUTO) 2.5 K/uL (1.8-8.9); NEUTROPHILS % (AUTO) 33.7 % (43.0-81.0); PLATELET COUNT (AUTO) 205 K/uL (150-450); RED BLOOD CELL COUNT(AUTO) 3.84 MIL/uL (4.0-5.2); RED CELL DISTRIBUTION WIDTH 13.4 % (11.5-15.0); WHITE BLOOD COUNT (AUTO) 7.5 K/uL (4.3-11.0)
[2024-05-26] MEDS: IV NS 0.9% 1,000 ML BAG IV ONE (22:45)
[2024-05-26 22:47] LABS: ALANINE AMINOTRANSFERASE 34 U/L (12-78); ALBUMIN 3.2 g/dL (3.4-5.0); ALKALINE PHOSPHATASE 108 U/L (46-116); ASPARTATE AMINOTRANSFERASE 28 U/L (15-37); BILIRUBIN,DIRECT 0.1 mg/dL (0.0-0.2); BILIRUBIN,TOTAL 0.2 mg/dL (0.2-1.0); CALCIUM, SERUM 9.2 mg/dL (8.5-10.1); CARBON DIOXIDE 30 mmol/L (21-32); CHLORIDE 105 mmol/L (98-107); CREATININE 0.9 mg/dL (0.6-1.3); GLUCOSE 113 mg/dL (74-106); POTASSIUM 3.8 mmol/L (3.5-5.1); SODIUM SERUM 141 mmol/L (136-145); TOTAL PROTEIN, SERUM 7.4 g/dL (6.4-8.2); UREA NITROGEN, BLOOD 14 mg/dL (7-18)
[2024-05-26 22:48] LABS: ACETAMINOPHEN <10 ug/ml (10-30); ALCOHOL, BLOOD < 3 mg/dL (0-10); SALICYLATE 1.6 mg/dL (2.8-20.0)
[2024-05-26 23:45] LABS: APPEARANCE,URINE CLEAR (CLEAR); BILIRUBIN,URINE NEGATIVE (NEGATIVE); BLOOD, URINE 1+ Ery/uL (NEGATIVE); COLOR,URINE YELLOW (YELLOW); KETONES,URINE NEGATIVE (NEGATIVE); LEUKOCYTE ESTERASE ,URINE NEGATIVE (NEGATIVE); NITRITE, URINE NEGATIVE (NEGATIVE); PROTEIN,URINE NEGATIVE (NEGATIVE); UGLUCOSE NEGATIVE (NEGATIVE); UROBILINOGEN,URINE 0.2 EU/dL (0.2)
[2024-05-26 23:59] LABS: AMPHETAMINE, URINE NEGATIVE (NEGATIVE); BARBITURATE, URINE NEGATIVE (NEGATIVE); BENZODIAZEPINE, URINE NEGATIVE (NEGATIVE); CANNABINOID, URINE NEGATIVE (NEGATIVE); COCCAINE, URINE NEGATIVE (NEGATIVE); OPIATE, URINE NEGATIVE (NEGATIVE); PHENCYCLIDINE SCREEN,URINE NEGATIVE (NEGATIVE)
[2024-05-27 00:29] LABS: ADD URINE CULTURE NO; BACTERIA,URINE Rare /HPF (None Seen); RBC,URINE 0-2 /HPF (0-2); WBC,URINE 0-2 /HPF (0-3)
[2024-05-27 00:30] LABS: SQUAMOUS EPITHELIAL CELL,UR 0-2 /HPF (None Seen)
[2024-05-27] MEDS ORDERED: ACETAMINOPHEN 325 MG TABLET PO PRN (00:30)
[2024-05-27] MEDS ORDERED: hydrALAZINE HCL IV 20 MG VIAL IV PRN (00:30)
[2024-05-27] MEDS ORDERED: MORPHINE SULFATE INJ 2 MG/ML DISP.SYRIN IV PRN (00:30)
[2024-05-27] MEDS ORDERED: Z GUARD REMEDY 4 OZ OINT TP PRN (00:30)
[2024-05-27] MEDS ORDERED: MAGNESIUM HYDROXIDE 30 ML UDC PO PRN (00:30)
[2024-05-27] MEDS ORDERED: MAG HYDROX/AL HYDROX/SIMETH 30 ML UDC PO PRN (00:30)
[2024-05-27] MEDS: IV NS 0.9% 1,000 ML IV SCH (02:20)
[2024-05-27 05:00] VITALS: BP 118/75; TEMP 98.2; O2SAT 98
[2024-05-27 08:00] VITALS: BP 116/73; TEMP 97.5; O2SAT 99
[2024-05-27] MEDS: RIVASTIGMINE TARTRATE 1.5 MG CAPSULE PO SCH (08:21)
[2024-05-27] MEDS: POLYETHYLENE GLYCOL 3350 17 GM POWD.PACK PO SCH (08:21)
[2024-05-27] MEDS: HALOPERIDOL 1 MG TABLET PO SCH (08:21)
[2024-05-27] MEDS: DOCUSATE SODIUM LIQ 100 MG/10 ML UDC PO SCH (08:21)
[2024-05-27] MEDS: ESCITALOPRAM OXALATE (10 MG) 10 MG TABLET PO SCH (08:22)
[2024-05-27] MEDS: LISINOPRIL (20MG) 20 MG TABLET PO SCH (08:22)
[2024-05-27] MEDS: AMLODIPINE BESYLATE 5 MG TABLET PO SCH (08:22)
[2024-05-27] MEDS: DIVALPROEX SODIUM 125 MG CAP.SPRINK PO SCH (08:22)
[2024-05-27] MEDS: HYDROCHLOROTHIAZIDE 25 MG TABLET PO SCH (08:23)
[2024-05-27] MEDS: HEPARIN SODIUM, PORCINE 5000 UNITS/1 ML VIAL SQ SCH (08:25)
[2024-05-27] MEDS ORDERED: Medication Not On Formulary EA (Lisinopril/Hydrochlorothiazide (Lisinopril-Hctz 20-25 Mg PO SCH (09:00)
[2024-05-27] MEDS ORDERED: LISI20TA30 PO (09:17)
[2024-05-27] MEDS ORDERED: TEMA7.5C12 PO (09:17)
[2024-05-27] MEDS ORDERED: LEVE100S PO (09:17)
[2024-05-27] MEDS ORDERED: HYDR25TA4 PO (09:17)
[2024-05-27 16:00] VITALS: BP 121/69; TEMP 97.7; O2SAT 99
[2024-05-27] MEDS: DONEPEZIL 5 MG TABLET PO SCH (17:04)
[2024-05-27] MEDS: LATANOPROST EYE DROP 0.005% 2.5 ML BOTTLE EACHEYE SCH (21:06)
[2024-05-27 22:00] VITALS: BP 170/90; TEMP 98.4; O2SAT 99
[2024-05-27] MEDS: QUETIAPINE FUMARATE 25 MG TABLET PO SCH (22:26)
[2024-05-27 23:00] VITALS: BP 140/90
[2024-05-28 07:14] LABS: BASOPHILS % (AUTO) 0.2 % (0.0-2.0); EOSINOPHILS % (AUTO) 0.6 % (0.0-6.0); HEMATOCRIT 38 % (33-45); LYMPHOCYTES # (AUTO) 2.7 K/uL (0.8-4.8); LYMPHOCYTES % (AUTO) 39.7 % (20.0-44.0); MEAN CORPUSCULAR HEMOGLOBIN 31 PG (26.0-33.0); MEAN CORPUSCULAR HGB CONC 34 g/dl (31.0-36.0); MEAN CORPUSCULAR VOLUME 91 fL (82-100); MONOCYTES # (AUTO) 0.5 K/uL (0.1-1.30); MONOCYTES % (AUTO) 7.9 % (2.0-12.0); NEUTROPHILS # (AUTO) 3.5 K/uL (1.8-8.9); NEUTROPHILS % (AUTO) 51.6 % (43.0-81.0); PLATELET COUNT (AUTO) 236 K/uL (150-450); RED BLOOD CELL COUNT(AUTO) 4.22 MIL/uL (4.0-5.2); RED CELL DISTRIBUTION WIDTH 13.1 % (11.5-15.0); WHITE BLOOD COUNT (AUTO) 6.7 K/uL (4.3-11.0)
[2024-05-28 07:44] LABS: ALBUMIN 3.3 g/dL (3.4-5.0); BILIRUBIN,TOTAL 0.4 mg/dL (0.2-1.0); CALCIUM, SERUM 8.9 mg/dL (8.5-10.1); CREATININE 0.5 mg/dL (0.6-1.3); MAGNESIUM 2.1 mg/dL (1.8-2.4); PHOSPHORUS 3.2 mg/dL (2.5-4.9); POTASSIUM 3.3 mmol/L (3.5-5.1)
[2024-05-28 08:00] VITALS: BP 136/80; TEMP 97.5; O2SAT 94
[2024-05-28] MEDS: POTASSIUM CHLORIDE 20 MEQ TAB.PRT.SR PO SCH (09:48)
[2024-05-28 16:00] VITALS: BP 137/55; TEMP 97.7; O2SAT 96
[2024-05-28 20:00] VITALS: BP 139/98; TEMP 99; O2SAT 97
[2024-05-29 08:00] VITALS: BP 134/58; TEMP 98.3; O2SAT 97
[2024-05-29 16:00] VITALS: BP 148/79; TEMP 98.4; O2SAT 94
[2024-05-29 20:00] VITALS: BP 140/88; TEMP 98.1; O2SAT 97
[2024-05-29 23:56] VITALS: BP 140/88; TEMP 98.1; O2SAT 97
[2024-05-30 08:00] VITALS: BP 161/84; TEMP 98.6; O2SAT 98
[2024-05-30 08:24] VITALS: BP 161/84
== END 2024-05-30 13:45 | DRG 640 ==
LOC: ER 21:42 → TELE 05-27 02:31 → MED 05-27 03:27
PROVIDERS: ADMIT Internal Medicine; ATTEND Internal Medicine
DX: E86.0 Dehydration (principal); G93.41 Metabolic encephalopathy; R53.2 Functional quadriplegia; G93.49 Other encephalopathy; R62.7 Adult failure to thrive; I10 Essential (primary) hypertension; F03.90 Unspecified dementia, unspecified severity, without behavioral disturbance, psychotic disturbance, mood disturbance, and anxiety; I71.20 Thoracic aortic aneurysm, without rupture, unspecified; E11.9 Type 2 diabetes mellitus without complications; R13.10 Dysphagia, unspecified; Z79.899 Other long term (current) drug therapy; F32.A Depression, unspecified; F20.9 Schizophrenia, unspecified; H40.9 Unspecified glaucoma; G40.909 Epilepsy, unspecified, not intractable, without status epilepticus
CPT/HCPCS: 36415; 70450-TC; 71045-TC; 80048-TC; 80053-TC; 80076-TC; 81001; 83735-TC; 84100-TC; 84443-TC; 84484-TC; 85025-TC; 87081-TC; 87086-TC; A4223; G0378; G0480; J0360; J1644; J7030; J7040

== ENCOUNTER 2024-11-10 19:54 | Inpatient (IN) | payer MEDICARE, OTHER ==
[~2024-11-10] VITALS: Ht 172.7 cm; Wt 59.9 kg
[~2024-11-10 19:54] MED LIST changes: -AMIN30LI27 PO; -ESCI10TA PO; -HALO1TAB5 PO; +HYDR25TA4 PO; +LEVE100S PO; -LISI1TAB29 PO; +LISI20TA30 PO; -QUET25TA PO; -RIVA1.5C13 PO; +TEMA7.5C12 PO
[2024-11-10] MEDS: IV NS 0.9% 500 ML BAG IV ONE (20:25)
[2024-11-10 20:53] LABS: PLATELET COUNT (AUTO) 194 K/uL (150-450); RED BLOOD CELL COUNT(AUTO) 3.66 MIL/uL (4.0-5.2); RED CELL DISTRIBUTION WIDTH 14.0 % (11.5-15.0); WHITE BLOOD COUNT (AUTO) 6.7 K/uL (4.3-11.0)
[2024-11-10 21:04] LABS: CALCIUM, SERUM 8.9 mg/dL (8.5-10.1); CREATININE 0.9 mg/dL (0.6-1.3); SODIUM SERUM 142.0 mmol/L (136-145); UREA NITROGEN, BLOOD 16.0 mg/dL (7-18)
[2024-11-10 21:09] LABS: APPEARANCE,URINE CLEAR (CLEAR); BLOOD, URINE 2+ Ery/uL (NEGATIVE); LEUKOCYTE ESTERASE ,URINE NEGATIVE (NEGATIVE); NITRITE, URINE NEGATIVE (NEGATIVE); UGLUCOSE NEGATIVE (NEGATIVE)
[2024-11-10 21:09] LABS: ASPARTATE AMINOTRANSFERASE 14.0 U/L (15-37); TOTAL PROTEIN, SERUM 7.1 g/dL (6.4-8.2)
[2024-11-10 21:22] LABS: ADD URINE CULTURE NO
[2024-11-10] MEDS ORDERED: TEMAZEPAM 7.5 MG CAPSULE PO PRN (22:30)
[2024-11-10] MEDS ORDERED: NA PHOS,M-B/NA PHOS,DI-BA 1 EA ENEMA RC PRN (22:30)
[2024-11-10] MEDS ORDERED: ONDANSETRON HCL/PF 4 MG/2 ML VIAL IVP PRN (22:30)
[2024-11-10] MEDS ORDERED: BISACODYL SUPP (10 MG) 10 MG/SUPP.RECT SUPP.RECT RC PRN (22:30)
[2024-11-10] MEDS ORDERED: ZOLPIDEM TARTRATE 5 MG TABLET PO PRN (22:30)
[2024-11-10] MEDS ORDERED: ACETAMINOPHEN 325 MG TABLET PO PRN ×2 (22:30)
[2024-11-10] MEDS ORDERED: Z GUARD REMEDY 4 OZ OINT TP PRN (22:30)
[2024-11-10] MEDS ORDERED: MAGNESIUM HYDROXIDE 30 ML UDC PO PRN ×2 (22:30)
[2024-11-10] MEDS ORDERED: MAG HYDROX/AL HYDROX/SIMETH 30 ML UDC PO PRN (22:30)
[2024-11-10 22:40] VITALS: BP 144/72; TEMP 97.7; O2SAT 96
[2024-11-10] MEDS: IV 1/2NS 1000 ML 1,000 ML IV PRN (23:26)
[2024-11-11] MEDS ORDERED: LORAZEPAM INJ 2 MG/ML VIAL IV PRN (04:30)
[2024-11-11] MEDS: PANTOPRAZOLE 40 MG TABLET.DR PO SCH (06:45)
[2024-11-11 07:51] LABS: CALCIUM, SERUM 9.0 mg/dL (8.5-10.1); CREATININE 0.8 mg/dL (0.6-1.3); PHOSPHORUS 3.1 mg/dL (2.5-4.9); SODIUM SERUM 141.0 mmol/L (136-145); UREA NITROGEN, BLOOD 12.0 mg/dL (7-18)
[2024-11-11] MEDS: DOCUSATE SODIUM 100 MG CAPSULE PO SCH (08:02)
[2024-11-11] MEDS: CLONIDINE HCL 0.1 MG TABLET PO SCH (08:02)
[2024-11-11] MEDS: AMLODIPINE BESYLATE 5 MG TABLET PO SCH (08:03)
[2024-11-11] MEDS: LEVETIRACETAM SOL (5 ML) 100 MG/ML UDC PO SCH (08:03)
[2024-11-11] MEDS: DIVALPROEX SODIUM 125 MG CAP.SPRINK PO SCH (08:03)
[2024-11-11] MEDS: HYDROCHLOROTHIAZIDE 25 MG TABLET PO SCH (08:03)
[2024-11-11] MEDS: LISINOPRIL (20MG) 20 MG TABLET PO SCH (08:03)
[2024-11-11] MEDS ORDERED: Medication Not On Formulary EA (Cranberry Extract (Cranberry) 900 MG) PO SCH (09:00)
[2024-11-11 09:08] VITALS: BP 168/104; TEMP 97.5; O2SAT 96
[2024-11-11 10:02] LABS: PLATELET COUNT (AUTO) 214 K/uL (150-450); RED BLOOD CELL COUNT(AUTO) 4.07 MIL/uL (4.0-5.2); RED CELL DISTRIBUTION WIDTH 13.6 % (11.5-15.0); WHITE BLOOD COUNT (AUTO) 6.6 K/uL (4.3-11.0)
[2024-11-11] MEDS: ENOXAPARIN SODIUM 40 MG/0.4 ML DISP.SYRIN SQ SCH (10:37)
[2024-11-11] MEDS ORDERED: hydrALAZINE HCL IV 20 MG VIAL IV PRN (12:00)
[2024-11-11 16:20] VITALS: BP 163/104; TEMP 98.1; O2SAT 96
[2024-11-11] MEDS: DONEPEZIL 5 MG TABLET PO SCH (17:06)
[2024-11-11] MEDS: risperiDONE-M 0.5 MG TAB.RAPDIS PO SCH (17:06)
[2024-11-11] MEDS: BENZTROPINE MESYLATE (1 MG) 1 MG TABLET PO SCH (17:06)
[2024-11-11 20:00] VITALS: BP 145/100; TEMP 98.1; O2SAT 98
[2024-11-11] MEDS: LATANOPROST EYE DROP 0.005% 2.5 ML BOTTLE EACHEYE SCH (21:59)
[2024-11-12] MEDS ORDERED: VALPROATE 500 MG/5 ML VIAL IV ONE (05:26)
[2024-11-12] MEDS: VALPROATE 250 MG in IV D5W 100 ML IV SCH (05:39)
[2024-11-12 08:00] VITALS: BP 139/82; TEMP 97.7; O2SAT 98
[2024-11-12 16:00] VITALS: BP 127/74; TEMP 97.9; O2SAT 96
[2024-11-12 20:00] VITALS: BP 141/93; TEMP 98.1; O2SAT 99
[2024-11-13 08:00] VITALS: BP 124/89; TEMP 98.4; O2SAT 99
[2024-11-13] MEDS: PANTOPRAZOLE 40 MG/PACK PACK PO SCH (09:14)
[2024-11-13 12:25] VITALS: BP 141/85
== END 2024-11-13 14:36 | DRG 640 ==
LOC: ER 20:01 → MED 22:12
PROVIDERS: ADMIT Student in an Organized Health Care Education/Training Program; ATTEND Nurse Practitioner Acute Care
DX: R62.7 Adult failure to thrive (principal); R53.2 Functional quadriplegia; G40.909 Epilepsy, unspecified, not intractable, without status epilepticus; F03.90 Unspecified dementia, unspecified severity, without behavioral disturbance, psychotic disturbance, mood disturbance, and anxiety; E11.9 Type 2 diabetes mellitus without complications; I10 Essential (primary) hypertension; I71.20 Thoracic aortic aneurysm, without rupture, unspecified; H40.9 Unspecified glaucoma; Z79.899 Other long term (current) drug therapy; F20.9 Schizophrenia, unspecified; F31.9 Bipolar disorder, unspecified; R13.10 Dysphagia, unspecified
CPT/HCPCS: 36415; 70450-TC; 71045-TC; 80048-TC; 80076-TC; 81001; 83735-TC; 84100-TC; 84443-TC; 84484-TC; 85025-TC; 87081-TC; 92526; 92611; 97110-TC; 97530-TC; A4223; G0378; J1650; J1953; J3490; J7040; J7060